=== PATIENT | female | born 1945 | race Asian ===

== ENCOUNTER 2016-11-21 18:16 | Emergency (ER) | payer OTHER, MEDICARE ==
[2016-11-21 18:24] VITALS: BMI 27.3
[2016-11-21] MEDS ORDERED: OXYCODONE/APAP 5/325MG COMBO TABLET PO ONE (19:35)
[2016-11-21] MEDS ORDERED: METHOCARBAMOL 500 MG TABLET PO ONE (19:35)
[2016-11-21] MEDS ORDERED: OXYCODONE/APAP 5/325MG COMBO TABLET ONE (19:38)
[2016-11-21] MEDS ORDERED: METHOCARBAMOL 500 MG TABLET ONE (19:39)
--- NOTE | 2016-11-21 20:40 | PDOC ---
History of Present Illness - General History Source: Patient Exam Limitations: No Limitations - History of Present Illness Initial Comments: 11/21/16 20:50 The patient is a 71 year old female with a PMHx of HTN, HLD who presents to the ED with left sided chest pain, midsternal pain and left upper back pain for three days. Patient was at the gym and got distracted by teenagers running around and lost her balance. She fell onto her back. She visited her PCP for the pain, and received a chest XR. The XR showed a crack in her sternum, so the PCP sent the patient to the ED. She took Advil with minimal relief. She denies shortness of breath, palpitations, headache and dizziness. The patient denies fever, chills, nausea, vomiting, diarrhea, and constipation. <Bushra Kitchen - Last Filed: 11/21/16 20:50> <Maryjane Pacheco - Last Filed: 11/22/16 02:54> - General Chief Complaint: Revisit,Radiology Variance Stated Complaint: PCP SENT/INJURY Time Seen by Provider: 11/21/16 19:23 Past History <Bushra Kitchen - Last Filed: 11/21/16 20:50> - Past Medical History GI Disorders: Yes (GERD) HTN: Yes Hypercholesterolemia: Yes - Psycho/Social/Smoking Cessation Hx Suicidal Ideation: No Smoking History: Never smoked <Maryjane Pacheco - Last Filed: 11/22/16 02:54> - Past Medical History Allergies/Adverse Reactions: Allergies Allergy/AdvReac Type Severity Reaction Status Date / Time No Known Allergies Allergy Verified 11/21/16 18:18 Home Medications: Ambulatory Orders Amlodipine Besylate [Norvasc -] 5 mg PO DAILY 11/21/16 Methocarbamol [Robaxin -] 500 mg PO TID #30 tablet 11/21/16 Omeprazole 20 mg PO DAILY 11/21/16 Oxycodone HCl/Acetaminophen [Percocet 5/325 -] 1 tab PO Q6H #20 tablet MDD 4 01/04 Tamsulosin HCl [Flomax] 0.4 mg PO DAILY 11/21/16 Review of Systems - Review of Systems Able to Perform ROS?: Yes Comments:: 11/21/16 20:51 GENERAL/CONSTITUTIONAL: No fever or chills. No weakness. HEAD, EYES, EARS, NOSE AND THROAT: No change in vision. No ear pain or discharge. No sore throat. CARDIOVASCULAR: + left sided chest pain, sternal pain. No shortness of breath. RESPIRATORY: No cough, wheezing, or hemoptysis. GASTROINTESTINAL: No nausea, vomiting, diarrhea or constipation. GENITOURINARY: No dysuria, frequency, or change in urination. MUSCULOSKELETAL: + left upper back pain. No joint or muscle swelling or pain. No neck pain. SKIN: No rash NEUROLOGIC: No headache, vertigo, loss of consciousness, or change in strength/ sensation. ENDOCRINE: No increased thirst. No abnormal weight change. HEMATOLOGIC/LYMPHATIC: No anemia, easy bleeding, or history of blood clots. ALLERGIC/IMMUNOLOGIC: No hives or skin allergy. <Bushra Kitchen - Last Filed: 11/21/16 20:50> *Physical Exam - Vital Signs Last Vital Signs Temp Pulse Resp BP Pulse Ox 97.9 F 59 L 19 156/81 96 11/21/16 18:18 11/21/16 18:18 11/21/16 18:18 11/21/16 18:18 11/21/16 18:18 - Physical Exam Comments: 11/21/16 20:51 GENERAL: Awake, alert, and fully oriented, in no acute distress HEAD: No signs of trauma EYES: PERRLA, EOMI, sclera anicteric, conjunctiva clear ENT: Auricles normal inspection, hearing grossly normal, nares patent, oropharynx clear without exudates. Moist mucosa NECK: Normal ROM, supple, no lymphadenopathy, JVD, or masses LUNGS: Breath sounds equal, clear to auscultation bilaterally. No wheezes, and no crackles HEART: Regular rate and rhythm, normal S1 and S2, no murmurs, rubs or gallops ABDOMEN: Soft, nontender, normoactive bowel sounds. No guarding, no rebound. No masses EXTREMITIES: Normal range of motion, no edema. No clubbing or cyanosis. No cords, erythema, or tenderness MUSCULOSKELETAL: Left scapular muscular tenderness, mid sternal chest wall tenderness. NEUROLOGICAL: Cranial nerves II through XII grossly intact. Normal speech, normal gait SKIN: Warm, Dry, normal turgor, no rashes or lesions noted. <Bushra Kitchen - Last Filed: 11/21/16 20:50> - Vital Signs Last Vital Signs Temp Pulse Resp BP Pulse Ox 97.9 F 59 L 19 156/81 96 11/21/16 18:18 11/21/16 18:18 11/21/16 18:18 11/21/16 18:18 11/21/16 18:18 <Maryjane Pacheco - Last Filed: 11/22/16 02:54> ED Treatment Course - RADIOLOGY Radiograph Interpretation: 11/21/16 20:[address] without contrast Reported by: Dr. Manuel Martinez Impression: Nondisplaced fracture of the anterior cortex of the upper sternal body noted. No acute rib fracture is seen. There is no pneumothorax. There is no obvious parenchymal lung contusion. There is no pneumomediastinum. The ascending portion of the aortic arch is mildly dilated with transverse dimension of 4.0 x 4.1 cm. No mediastinal hematoma. Mild cardiomegaly. No pleural or pericardial effusion. Findings discussed with Dr. Melgar at 8:44 PM. - Medications Given in the ED: ED Medications Discontinued Medications Generic Name Dose Route Start Last Admin Trade Name Freq PRN Reason Stop Dose Admin Methocarbamol 1,000 mg 11/21/16 19:35 11/21/16 19:45 Robaxin - PO 11/21/16 19:36 1,000 mg ONCE ONE Administration Oxycodone/Acetaminophen 1 combo 11/21/16 19:35 11/21/16 19:45 Percocet 5/325 - PO 11/21/16 19:36 1 combo ONCE ONE Administration <Bushra Kitchen - Last Filed: 11/21/16 20:50> - RADIOLOGY Radiology Studies Ordered: Category Date Time Status CHEST CT WITHOUT CONTRAST [CT] Stat CT Scan 11/21/16 19:34 Taken - Medications Given in the ED: ED Medications Discontinued Medications Generic Name Dose Route Start Last Admin Trade Name Freq PRN Reason Stop Dose Admin Methocarbamol 1,000 mg 11/21/16 19:35 11/21/16 19:45 Robaxin - PO 11/21/16 19:36 1,000 mg ONCE ONE Administration Oxycodone/Acetaminophen 1 combo 11/21/16 19:35 11/21/16 19:45 Percocet 5/325 - PO 11/21/16 19:36 1 combo ONCE ONE Administration <Maryajne Pacheco - Last Filed: 11/22/16 02:54> Medical Decision Making - Medical Decision Making 11/21/16 20:59 Patient Name: Lyssa Diaz THIS IS A PRELIMINARY REPORT FROM [facility] EXAM: CT chest without contrast IMAGES: 430 DATE OF SERVICE: 2016-11-21 19:44: 28.0 REASON FOR EXAM: Sternal fracture versus right rib fractures COMPARISON: None FINDINGS: Nondisplaced fracture of the anterior cortex of the upper sternal body noted. No acute rib fracture is seen. There is no pneumothorax. There is no obvious parenchymal lung contusion. There is no pneumomediastinum. The ascending portion of the aortic arch is mildly dilated with transverse dimension of 4.0 x 4.1 cm. No mediastinal hematoma. Mild cardiomegaly. No pleural or pericardial effusion. 11/22/16 02:52 Pt fell in the gym on and has sternal pain. XR done at PMDs office shows sternal fracture. She was sent to the ER for eval. CT chest shows sternal fracture. However, no deformity through and through and no thoacic content involvement. Pt will be treated with percocet and muscle relaxant. SHe is feeling better with analgesics in the ER. <Maryjane Pacheco - Last Filed: 11/22/16 02:54> *DC/Admit/Observation/Transfer - Attestations Scribe Attestion: 11/21/16 20:52 Documentation prepared by Bushra Kitchen, acting as certified medical asst for Maryjane Pacheco MD. <Bushra Kitchen - Last Filed: 11/21/16 20:50> - Discharge Dispostion Admit: No <Maryjane Pacheco - Last Filed: 11/22/16 02:54> Diagnosis at time of Disposition: Sternal fracture, Musculoskeletal pain - Discharge Dispostion Disposition: HOME Condition at time of disposition: Stable - Prescriptions Prescriptions: Oxycodone HCl/Acetaminophen [Percocet 5/325 -] 1 tab PO Q6H #20 tablet MDD 4 Methocarbamol [Robaxin -] 500 mg PO TID #30 tablet - Referrals Referrals: Jimi Whitaker [Primary Care Provider] - - Patient Instructions Printed Discharge Instructions: DI for Sternum Fracture, DI for Musculoskeletal Pain
[2016-11-21 20:51] VITALS: BP 137/76; PULSE 54; TEMP 97.8
== END 2016-11-21 21:10 | disposition home or self-care (01) ==
LOC: JER 18:16
DX: S22.20XA Unspecified fracture of sternum, initial encounter for closed fracture (principal); W18.39XA Other fall on same level, initial encounter; Y93.B9 Activity, other involving muscle strengthening exercises; Y92.39 Other specified sports and athletic area as the place of occurrence of the external cause; Y99.8 Other external cause status; I10 Essential (primary) hypertension; E78.5 Hyperlipidemia, unspecified; E78.00 Pure hypercholesterolemia, unspecified
CPT/HCPCS: 71250-TC; 99282-25